=== PATIENT | male | born 1995 | race Caucasian/White ===

== ENCOUNTER 2021-08-01 12:44 | Emergency (ER) | payer OTHER ==
[2021-08-01 15:02] VITALS: BP 125/66
[2021-08-01] MEDS ORDERED: DEXAMETHASONE 10 MG/ML VIAL IVP STA (15:37)
[2021-08-01] MEDS ORDERED: SODIUM CHLORIDE 0.9% 1,000 ML IV STA (15:37)
[2021-08-01] MEDS ORDERED: PROCHLORPERAZINE 10 MG/2 ML VIAL IVP STA (15:37)
[2021-08-01] MEDS ORDERED: KETOROLAC 30 MG/ML VIAL IVP STA (15:37)
[2021-08-01] MEDS ORDERED: diphenhydrAMINE INJ 50 MG/ML VIAL IVP STA (15:37)
--- NOTE | 2021-08-01 15:38 | ED Physician Documentation ---
PD HPI HEADACHE - Stated complaint Stated Complaint: N/V DIZZINESS - Chief complaint Chief Complaint: Neuro - History obtained from History obtained from: Patient - History of Present Illness Timing - onset: How many days ago (22) Timing - onset during: Rest Timing - duration: Days Timing - details: Gradual onset, Still present Location: Front Quality: Throbbing Associated symptoms: Nausea, Vomiting. No: Fever, Stiff neck, Syncope Improved by: Rest, Dark room, Quiet, Meds Worsened by: Light, Noise, Moving Contributing factors: No: Anticoagulated, Possible carbon monoxide Similar symptoms before: Has not had sx before Recently seen: Not recently seen - Additional information Additional information: Previously well 25-year-old male has developed some blurring of his vision associated with onset of nausea and vomiting and a headache. He has not had these symptom complexes previously. He was asked by his command to come into the emergency department for evaluation. He is feeling somewhat better as far as his nausea goes he continues to have a headache. Review of Systems Constitutional: denies: Fever Eyes: reports: Photophobia. denies: Decreased vision Ears: denies: Ear pain Nose: denies: Congestion Throat: denies: Sore throat Cardiac: denies: Chest pain / pressure, Palpitations Respiratory: denies: Dyspnea, Cough GI: reports: Nausea, Vomiting. denies: Abdominal Pain, Constipation, Diarrhea : denies: Dysuria, Frequency Skin: denies: Rash Musculoskeletal: denies: Neck pain, Back pain, Extremity pain Neurologic: denies: Generalized weakness, Focal weakness, Numbness PD PAST MEDICAL HISTORY - Present Medications Home Medications: Ambulatory Orders Medication Instructions Recorded Confirmed No Known Home Medications 08/01/21 08/01/21 - Allergies Allergies/Adverse Reactions: Allergies Allergy/AdvReac Type Severity Reaction Status Date / Time No Known Drug Allergies Allergy Verified 08/01/21 12:56 PD ED PE NORMAL - Vitals Vital signs reviewed: Yes (Hypertensive mild) - General General: Alert and oriented X 3, No acute distress, Well developed/nourished - HEENT HEENT: Atraumatic, PERRL, EOMI - Neck Neck: Supple, no meningeal sign, No bony TTP - Cardiac Cardiac: RRR, No murmur - Respiratory Respiratory: No respiratory distress, Clear bilaterally - Abdomen Abdomen: Soft, Non tender - Back Back: No CVA TTP, No spinal TTP - Derm Derm: Normal color, Warm and dry, No rash - Extremities Extremities: No deformity, Normal ROM s pain, No edema - Neuro Neuro: Alert and oriented X 3, cell tender 2-12 intact, No motor deficit, No sensory deficit, Normal speech Eye Opening: Spontaneous Motor: Obeys Commands Verbal: Oriented GCS Score: 15 - Psych Psych: Normal mood, Normal affect Results - Vitals Vitals: Vital Signs - 24 hr 08/01/21 08/01/21 12:54 15:00 Temperature 36.2 C L 36.7 C Heart Rate 62 68 Respiratory 16 20 Rate Blood Pressure 134/67 H 125/66 O2 Saturation 100 100 Oxygen O2 Source Room air PD MEDICAL DECISION MAKING - ED course Complexity details: reviewed results, re-evaluated patient, considered differential, d/w patient ED course: 25-year-old male without a prior history of migraine appears to have a migraine headache he appears to have had a aura associated with this headache as well with some blurring to his vision and this resolved when the headache started and he has had some nausea and vomiting with this as well. He is treated here in the emergency department with a migraine cocktail consisting of a liter of saline 10 mg of dexamethasone 10 mg of Compazine 25 mg of Benadryl and 30 mg of Toradol intravenously.The patient was improved at the conclusion of treatment. Departure - Departure Disposition: 01 Home, Self Care Clinical Impression: Migraine Qualifiers: Migraine type: with aura Status migrainosus presence: without status migrainosus Intractability: not intractable Qualified Code(s): G43.109 - Migraine with aura, not intractable, without status migrainosus Condition: Stable Instructions: ED Headache Migraine Follow-Up: TOÑO FISHER MD [Primary Care Provider] - Discharge Date/Time: 08/01/21 16:29
== END 2021-08-01 16:29 | disposition home or self-care (01) ==
LOC: ED 12:44
DX: G43.109 Migraine with aura, not intractable, without status migrainosus (principal)
CPT/HCPCS: 96374; 96375; 99284; 99285; J1200